=== PATIENT | male | born 1955 | race Two or more races ===

== ENCOUNTER 2017-11-03 04:48 | Inpatient (IN) | payer OTHER ==
[2017-11-02 14:14] LABS: MICROSCOPIC NOT IND
[2017-11-02 14:25] LABS: BASOPHILS # (AUTO) 0.09 x10^3/uL (0-0.1); BASOPHILS % (AUTO) 1 % (0-1); EOSINOPHILS # (AUTO) 0.43 x10^3/uL (0-0.4); EOSINOPHILS % (AUTO) 5 % (1-7); LYMPHOCYTES % (AUTO) 26 % (22-44); MD NO; MEAN CORPUSCULAR HEMOGLOBIN 29.1 pg (27.5-34.5); MEAN CORPUSCULAR HGB CONC 32.8 g/dL (33.2-36.2); MEAN CORPUSCULAR VOLUME 88.8 fL (81-97); MEAN PLATELET VOLUME 9.3 fL (7.4-10.4); MONOCYTES # (AUTO) 0.67 x10^3/uL (0.2-0.8); MONOCYTES % (AUTO) 7 % (2-9); NEUTROPHILS # (AUTO) 5.49 x10^3/uL (1.8-6.8); NEUTROPHILS % (AUTO) 60 % (42-75); PLATELET COUNT 212 x10^3/uL (130-400); RED BLOOD COUNT 5.73 x10^6/uL (4.38-5.82); RED CELL DISTRIBUTION WIDTH 13.4 % (9.4-14.8)
[2017-11-02 14:38] LABS: ANION GAP 6 mmol/L (5-15); CALCIUM 9.1 mg/dL (8.5-10.1); CHLORIDE 109 mmol/L (98-107)
[2017-11-02 14:42] LABS: ALANINE AMINOTRANSFERASE 33 U/L (12-78); ALKALINE PHOSPHATASE 96 U/L (45-117); BILIRUBIN,TOTAL 0.6 mg/dL (0.2-1.0); CREATININE 1.28 mg/dL (0.7-1.3); TOTAL PROTEIN 7.7 g/dL (6.4-8.2)
[2017-11-02 14:58] LABS: INTERNATIONAL NORMALIZED RATIO 1.03 (0.93-1.1); PROTHROMBIN TIME 10.7 Seconds (9.6-11.5)
[~2017-11-03] VITALS: Ht 182.9 cm; Wt 83.5 kg
[~2017-11-03 04:48] MED LIST: RIVA20TA PO
[2017-11-03] MEDS ORDERED: ALBUMIN HUMAN 5% 500 ML IV PRN (05:00)
[2017-11-03] MEDS ORDERED: INSULIN LISPRO 100 UNITS/ML, PEN SQ-INSULIN SCH (05:30)
[2017-11-03] MEDS ORDERED: DO NOT GIVE MC SCH (05:30)
[2017-11-03] MEDS ORDERED: CHLORHEXIDINE 15 ML BOTTLE MM SCH (05:30)
[2017-11-03] MEDS: MUPIROCIN OINT 2%, 22GM TP SCH ×2 (05:46→21:00)
[2017-11-03 05:56] VITALS: BP_SYST 118; BP_SYST 136; BP_DIAS 71; BP_DIAS 76
[2017-11-03] MEDS: SODIUM CHLORIDE FLUSH 10ML SYR IVF SCH ×3 (06:26→21:28)
[2017-11-03] MEDS ORDERED: REGULAR INSULIN 62.5 UNITS in SODIUM CHLORIDE 0.9% 249.375 ML IV PRN ×2 (07:30→13:20)
[2017-11-03] MEDS ORDERED: DEXMEDETOMIDINE 200 MCG in SODIUM CHLORIDE 0.9% 48 ML IV SCH (07:30)
[2017-11-03] MEDS ORDERED: MANNITOL PMX 20% 500 ML IVPB PRN (07:30)
[2017-11-03] MEDS ORDERED: PHENYLEPHRINE 10 MG in SODIUM CHLORIDE 0.9% 249 ML IV PRN ×2 (07:30→13:20)
[2017-11-03] MEDS ORDERED: CEFUROXIME 1.5 GM in SODIUM CHLORIDE 0.9% 50 ML IVPB PRN (07:30)
[2017-11-03] MEDS ORDERED: EPINEPHRINE 2 MG in SODIUM CHLORIDE 0.9% 248 ML IV SCH (07:30)
[2017-11-03] MEDS ORDERED: VANCOMYCIN 1,200 MG in SODIUM CHLORIDE 0.9% 250 ML IV PRN (07:30)
[2017-11-03] MEDS ORDERED: POTASSIUM CHLORIDE 80 MEQ, SODIUM BICARBONATE 8.4% 10 MEQ, MAGNESIUM SULFATE 0.5 GM, LI... IV PRN (07:30)
[2017-11-03] MEDS ORDERED: MIDAZOLAM 10MG/2 ML ONE (07:35)
[2017-11-03] MEDS ORDERED: SUFentanil 50 MCG/ML, 5ML ONE (07:36)
[2017-11-03] MEDS: DOCUSATE 100 MG CAPSULE PO SCH ×2 (09:00→21:00)
[2017-11-03] MEDS ORDERED: ROCURONIUM 10MG/ML,5ML ONE ×2 (12:01)
[2017-11-03] MEDS ORDERED: PROPOFOL 10 MG/ML, 20ML ONE (12:01)
[2017-11-03] MEDS ORDERED: PROTAMINE SULFATE 10 MG/ML, 25ML ONE ×2 (12:02)
[2017-11-03] MEDS ORDERED: AMINOCAPROIC ACID 250 MG/ML, 20ML ONE ×2 (12:02)
[2017-11-03] MEDS ORDERED: HEPARIN 1,000 UNITS/ML, 30ML ONE (13:13)
[2017-11-03] MEDS ORDERED: MANNITOL 0.25 GM/ML, 50ML ONE (13:14)
[2017-11-03] MEDS ORDERED: LIDOCAINE 2% 100MG/5ML SYRINGE ONE (13:15)
[2017-11-03] MEDS ORDERED: SODIUM BICARBONATE 1 MEQ/ML, 50ML VIAL ONE (13:15)
[2017-11-03] MEDS ORDERED: methylPREDNISolone SOD SUCC 125 MG/2 ML ONE (13:16)
[2017-11-03] MEDS ORDERED: ALBUMIN HUMAN 25% 100 ML ONE (13:16)
[2017-11-03] MEDS ORDERED: NITROGLYCERIN/D5W PMX 250 ML IV PRN (13:20)
[2017-11-03] MEDS ORDERED: SODIUM CHLORIDE 0.9% 1,000 ML IV PRN (13:20)
[2017-11-03] MEDS ORDERED: DOBUTAMINE 250 MG in SODIUM CHLORIDE 0.9% 230 ML IV PRN (13:20)
[2017-11-03] MEDS ORDERED: VASOPRESSIN 50 UNIT in SODIUM CHLORIDE 0.9% 247.5 ML IV PRN (13:20)
[2017-11-03] MEDS ORDERED: FENTANYL PF 100 MCG/2ML IVPush PRN (13:30)
[2017-11-03] MEDS ORDERED: ACETAMINOPHEN 650 MG SUPP PR PRN (13:30)
[2017-11-03] MEDS ORDERED: PROCHLORPERAZINE 5 MG/ML, 2ML IVPush PRN (13:30)
[2017-11-03] MEDS ORDERED: BISACODYL 5 MG EC TABLET PO PRN (13:30)
[2017-11-03] MEDS ORDERED: BISACODYL 10 MG SUPP PR PRN (13:30)
[2017-11-03] MEDS ORDERED: INSULIN REGULAR 100 UNITS/ML, 3ML VIAL IVPush PRN (13:30)
[2017-11-03] MEDS ORDERED: morphine SULFATE 10 MG/ML, 1ML IVPush PRN (13:30)
[2017-11-03] MEDS ORDERED: GLUCAGON 1 MG IM PRN (13:30)
[2017-11-03] MEDS ORDERED: MIDAZOLAM 1 MG/ML, 5ML IVPush PRN (13:30)
[2017-11-03] MEDS ORDERED: DEXTROSE 4 GM TAB.CHEW PO PRN (13:30)
[2017-11-03] MEDS ORDERED: DEXTROSE 50%, 50ML SYRINGE IVPush PRN (13:30)
[2017-11-03] MEDS ORDERED: EPINEPHRINE 2 MG in SODIUM CHLORIDE 0.9% 248 ML IV PRN (13:30)
[2017-11-03 13:56] LABS: GLUCOSE BY BLOOD GAS ANALYZER 120 mg/dL (70-110); HEMOGLOBIN BY BLOOD GAS ANALYZ 12.6 g/dL (14.0-18.0); POTASSIUM BY BLOOD GAS ANALYZR 3.7 mmol/L (3.6-5.5)
[2017-11-03 14:12] LABS: INTERNATIONAL NORMALIZED RATIO 1.33 (0.93-1.1); PROTHROMBIN TIME 13.8 Seconds (9.6-11.5)
[2017-11-03] MEDS: LACTATED RINGERS 1,000 ML IV PRN ×4 (14:28→17:25)
[2017-11-03] MEDS ORDERED: FILTER 0.22 MICRON FOR AMIODARONE IV PRN (14:30)
[2017-11-03] MEDS ORDERED: AMIODARONE 900 MG in DEXTROSE 5% 482 ML IV PRN (14:30)
[2017-11-03] MEDS: KSCALE TO 4.5 IV SCH ×2 (14:52→19:30)
[2017-11-03] MEDS ORDERED: POTASSIUM CHLORIDE PMX 100 ML IV ONE (15:00)
[2017-11-03] MEDS ORDERED: MAGNESIUM SULFATE 1 GM in SODIUM CHLORIDE 0.9% 50 ML IVPB SCH (15:00)
[2017-11-03] MEDS: DEXMEDETOMIDINE 200 MCG in SODIUM CHLORIDE 0.9% 48 ML IV PRN (15:48)
[2017-11-03] MEDS: INSULIN LISPRO 100 UNITS/ML, PEN SQ-INSULIN SCH ×2 (15:49→21:00)
[2017-11-03] MEDS ORDERED: CALCIUM CHLORIDE 13.6 MEQ in SODIUM CHLORIDE 0.9% 100 ML IV ONE (19:30)
[2017-11-03] MEDS: CEFUROXIME 1.5 GM in SODIUM CHLORIDE 0.9% 50 ML IVPB SCH (19:45)
[2017-11-03] MEDS: VANCOMYCIN 1,200 MG in SODIUM CHLORIDE 0.9% 250 ML IVPB SCH (20:46)
[2017-11-03] MEDS: MUPIROCIN OINT 2%, 22GM NAS SCH (21:27)
[2017-11-04] MEDS: KSCALE TO 4.5 IV SCH ×2 (01:30→07:30)
[2017-11-04] MEDS: DEXMEDETOMIDINE 200 MCG in SODIUM CHLORIDE 0.9% 48 ML IV PRN (02:33)
[2017-11-04] MEDS ORDERED: LACTATED RINGERS 500 ML IVBOLUS PRN (03:00)
[2017-11-04 04:00] VITALS: BP 110/64
[2017-11-04 04:50] LABS: BASOPHILS # (AUTO) 0.02 x10^3/uL (0-0.1); BASOPHILS % (AUTO) 0 % (0-1); EOSINOPHILS % (AUTO) 0 % (1-7); LYMPHOCYTES # (AUTO) 1.17 x10^3/uL (1-3.4); LYMPHOCYTES % (AUTO) 7 % (22-44); MD NO; MEAN CORPUSCULAR HEMOGLOBIN 29.1 pg (27.5-34.5); MEAN CORPUSCULAR HGB CONC 33.1 g/dL (33.2-36.2); MEAN CORPUSCULAR VOLUME 87.9 fL (81-97); MONOCYTES # (AUTO) 0.86 x10^3/uL (0.2-0.8); MONOCYTES % (AUTO) 5 % (2-9); NEUTROPHILS # (AUTO) 14.23 x10^3/uL (1.8-6.8); NEUTROPHILS % (AUTO) 87 % (42-75); PLATELET COUNT 126 x10^3/uL (130-400); RED BLOOD COUNT 4.54 x10^6/uL (4.38-5.82)
[2017-11-04 05:14] LABS: INTERNATIONAL NORMALIZED RATIO 1.14 (0.93-1.1); PROTHROMBIN TIME 11.8 Seconds (9.6-11.5)
[2017-11-04 05:22] LABS: ALBUMIN 2.9 g/dL (3.4-5.0); ANION GAP 9 mmol/L (5-15); CALCIUM 7.7 mg/dL (8.5-10.1); CHLORIDE 114 mmol/L (98-107); CREATININE 0.86 mg/dL (0.7-1.3)
[2017-11-04] MEDS: OXYcodone IR 5MG TABLET PO PRN ×4 (07:03→16:36)
[2017-11-04] MEDS ORDERED: ALBUMIN HUMAN 5% 500 ML IV ONE (08:00)
[2017-11-04] MEDS ORDERED: LACTATED RINGERS 500 ML IVBOLUS ONE (08:00)
[2017-11-04] MEDS ORDERED: CHLORDIAZEPOXIDE 10 MG CAPSULE PO PRN (08:30)
[2017-11-04] MEDS ORDERED: LORazepam 2 MG/ML, 1ML IVPush PRN (08:30)
[2017-11-04] MEDS: CEFUROXIME 1.5 GM in SODIUM CHLORIDE 0.9% 50 ML IVPB SCH (08:33)
[2017-11-04] MEDS: INSULIN LISPRO 100 UNITS/ML, PEN SQ-INSULIN SCH ×4 (08:47→21:19)
[2017-11-04] MEDS: WARFARIN BIOPROSTHETIC VALVE PROTOCOL 2-3 XX SCH (09:00)
[2017-11-04] MEDS: SODIUM CHLORIDE FLUSH 10ML SYR IVF SCH ×4 (09:00→21:11)
[2017-11-04] MEDS: DOCUSATE 100 MG CAPSULE PO SCH ×2 (10:10→21:12)
[2017-11-04] MEDS: ASPIRIN 81 MG TABLET EC PO SCH (10:10)
[2017-11-04] MEDS: MUPIROCIN OINT 2%, 22GM NAS SCH ×2 (10:11→21:12)
[2017-11-04] MEDS: AMIODARONE 200 MG TABLET PO SCH ×2 (10:11→21:13)
[2017-11-04] MEDS: VANCOMYCIN 1,200 MG in SODIUM CHLORIDE 0.9% 250 ML IVPB SCH (13:12)
[2017-11-04] MEDS: CHLORHEXIDINE 15 ML BOTTLE MM SCH (13:14)
[2017-11-04] MEDS: HYDROcodone/APAP 10/325 MG TABLET PO PRN (15:14)
[2017-11-04] MEDS: MAGNESIUM SULFATE 1 GM in DEXTROSE 5% 100 ML IVPB SCH (15:14)
[2017-11-04] MEDS ORDERED: WARFARIN 5 MG TABLET PO-COUM ONE (18:00)
[2017-11-05] MEDS: ONDANSETRON 2MG/ML, 2ML IVPush PRN ×2 (00:44→16:51)
[2017-11-05 04:00] VITALS: BP 106/72
[2017-11-05] MEDS: OXYcodone IR 5MG TABLET PO PRN (04:31)
[2017-11-05] MEDS: CHLORHEXIDINE 15 ML BOTTLE MM SCH ×2 (04:32→15:30)
[2017-11-05 05:02] LABS: CHLORIDE 108 mmol/L (98-107)
[2017-11-05 06:10] LABS: ANION GAP 11 mmol/L (5-15); CALCIUM 7.4 mg/dL (8.5-10.1); CREATININE 2.39 mg/dL (0.7-1.3)
[2017-11-05] MEDS ORDERED: FUROSEMIDE 20 MG/2 ML IV ONE (06:30)
[2017-11-05 06:39] LABS: MEAN CORPUSCULAR HEMOGLOBIN 29.1 pg (27.5-34.5); MEAN CORPUSCULAR HGB CONC 32.4 g/dL (33.2-36.2); MEAN CORPUSCULAR VOLUME 89.8 fL (81-97); MEAN PLATELET VOLUME 10.6 fL (7.4-10.4); PLATELET COUNT 116 x10^3/uL (130-400); RED BLOOD COUNT 4.89 x10^6/uL (4.38-5.82); RED CELL DISTRIBUTION WIDTH 14.4 % (9.4-14.8)
[2017-11-05 07:03] LABS: INTERNATIONAL NORMALIZED RATIO 1.55 (0.93-1.1)
[2017-11-05 07:13] LABS: MD YES
[2017-11-05 07:15] LABS: BANDS%(MANUAL) 2 % (0-7); LYMPH#(MANUAL) 1.51 x10^3/uL (1-3.4); LYMPHS% (MANUAL) 6 % (22-44); MONOS#(MANUAL) 1.51 x10^3/uL (0.3-2.7); MONOS% (MANUAL) 6 % (2-9); NRBC % (MANUAL) 1 % (0-1); SEG#(MANUAL) 21.59 x10^3/uL (1.8-6.8); SEGS% (MANUAL) 86 % (42-75)
[2017-11-05 07:16] LABS: <PLATELET ESTIMATE> DECREASED; LARGE PLATELETS 1+; POLYCHROMASIA 1+
[2017-11-05] MEDS: SODIUM CHLORIDE FLUSH 10ML SYR IVF SCH ×3 (07:29→21:28)
[2017-11-05] MEDS: SODIUM BICARB 8.4%, 50ML SYRINGE IV PRN ×2 (08:03→08:04)
[2017-11-05] MEDS: WARFARIN BIOPROSTHETIC VALVE PROTOCOL 2-3 XX SCH (09:00)
[2017-11-05] MEDS: ASPIRIN 81 MG TABLET EC PO SCH (09:52)
[2017-11-05] MEDS: AMIODARONE 200 MG TABLET PO SCH (09:52)
[2017-11-05] MEDS: INSULIN LISPRO 100 UNITS/ML, PEN SQ-INSULIN SCH ×4 (09:53→21:26)
[2017-11-05] MEDS: DOCUSATE 100 MG CAPSULE PO SCH ×2 (09:53→21:26)
[2017-11-05] MEDS: MUPIROCIN OINT 2%, 22GM NAS SCH ×2 (09:53→21:25)
[2017-11-05 11:47] LABS: CHLORIDE 105 mmol/L (98-107)
[2017-11-05 11:50] LABS: ANION GAP 10 mmol/L (5-15); CALCIUM 7.3 mg/dL (8.5-10.1); CREATININE 2.11 mg/dL (0.7-1.3)
[2017-11-05] MEDS: SODIUM CHLORIDE 0.9% 1,000 ML IV SCH (11:50)
[2017-11-05] MEDS: HYDROcodone/APAP 10/325 MG TABLET PO PRN (11:59)
[2017-11-05] MEDS: MAGNESIUM SULFATE 1 GM in DEXTROSE 5% 100 ML IVPB SCH (15:00)
[2017-11-05] MEDS ORDERED: WARFARIN 5 MG TABLET PO-COUM ONE (18:00)
[2017-11-06] MEDS: CHLORHEXIDINE 15 ML BOTTLE MM SCH (00:55)
[2017-11-06 04:48] VITALS: BP 125/82
[2017-11-06 04:54] LABS: INTERNATIONAL NORMALIZED RATIO 1.63 (0.93-1.1); MEAN CORPUSCULAR HGB CONC 33.1 g/dL (33.2-36.2); MEAN CORPUSCULAR VOLUME 90.6 fL (81-97); PROTHROMBIN TIME 16.8 Seconds (9.6-11.5); RED BLOOD COUNT 4.05 x10^6/uL (4.38-5.82); RED CELL DISTRIBUTION WIDTH 13.5 % (9.4-14.8)
[2017-11-06 05:49] LABS: MEAN PLATELET VOLUME 9.7 fL (7.4-10.4); PLATELET COUNT 101 x10^3/uL (130-400)
[2017-11-06 05:50] LABS: BASOPHILS # (AUTO) 0.08 x10^3/uL (0-0.1); BASOPHILS % (AUTO) 0 % (0-1); EOSINOPHILS # (AUTO) 0.01 x10^3/uL (0-0.4); EOSINOPHILS % (AUTO) 0 % (1-7); LYMPHOCYTES # (AUTO) 1.69 x10^3/uL (1-3.4); LYMPHOCYTES % (AUTO) 9 % (22-44); MD SCAN; MONOCYTES # (AUTO) 0.73 x10^3/uL (0.2-0.8); MONOCYTES % (AUTO) 4 % (2-9); NEUTROPHILS # (AUTO) 15.56 x10^3/uL (1.8-6.8); NEUTROPHILS % (AUTO) 86 % (42-75)
[2017-11-06 06:02] LABS: ANION GAP 6 mmol/L (5-15); CALCIUM 7.4 mg/dL (8.5-10.1); CHLORIDE 105 mmol/L (98-107); CREATININE 1.55 mg/dL (0.7-1.3)
[2017-11-06] MEDS: INSULIN LISPRO 100 UNITS/ML, PEN SQ-INSULIN SCH ×4 (07:00→20:37)
[2017-11-06] MEDS: ONDANSETRON 2MG/ML, 2ML IVPush PRN (08:25)
[2017-11-06] MEDS ORDERED: FUROSEMIDE 20 MG/2 ML ONE (08:55)
[2017-11-06] MEDS: FUROSEMIDE 20 MG/2 ML IV SCH ×2 (08:57→17:33)
[2017-11-06] MEDS: WARFARIN BIOPROSTHETIC VALVE PROTOCOL 2-3 XX SCH (09:00)
[2017-11-06] MEDS: ASPIRIN 81 MG TABLET EC PO SCH (12:30)
[2017-11-06] MEDS: SODIUM CHLORIDE FLUSH 10ML SYR IVF SCH ×2 (12:30→20:33)
[2017-11-06] MEDS: MUPIROCIN OINT 2%, 22GM NAS SCH ×2 (12:30→20:34)
[2017-11-06] MEDS: DOCUSATE 100 MG CAPSULE PO SCH ×2 (12:30→20:34)
[2017-11-06] MEDS: SODIUM CHLORIDE 0.9% 1,000 ML IV SCH (17:32)
[2017-11-06] MEDS ORDERED: WARFARIN 7.5 MG TABLET PO-COUM ONE (18:00)
[2017-11-07 04:55] VITALS: BP 121/69
[2017-11-07 05:51] LABS: CHLORIDE 103 mmol/L (98-107)
[2017-11-07 05:53] LABS: MEAN CORPUSCULAR HEMOGLOBIN 30.2 pg (27.5-34.5); MEAN CORPUSCULAR HGB CONC 34.1 g/dL (33.2-36.2); MEAN CORPUSCULAR VOLUME 88.6 fL (81-97); RED BLOOD COUNT 3.78 x10^6/uL (4.38-5.82); RED CELL DISTRIBUTION WIDTH 13.4 % (9.4-14.8)
[2017-11-07 06:08] LABS: INTERNATIONAL NORMALIZED RATIO 1.76 (0.93-1.1); PROTHROMBIN TIME 18.1 Seconds (9.6-11.5)
[2017-11-07 06:09] LABS: ANION GAP 6 mmol/L (5-15); CALCIUM 7.2 mg/dL (8.5-10.1); CREATININE 0.97 mg/dL (0.7-1.3)
[2017-11-07 06:17] LABS: BASOPHILS # (AUTO) 0.09 x10^3/uL (0-0.1); BASOPHILS % (AUTO) 1 % (0-1); EOSINOPHILS # (AUTO) 0.05 x10^3/uL (0-0.4); EOSINOPHILS % (AUTO) 0 % (1-7); LYMPHOCYTES % (AUTO) 11 % (22-44); MD SCAN; MEAN PLATELET VOLUME 9.4 fL (7.4-10.4); MONOCYTES # (AUTO) 0.57 x10^3/uL (0.2-0.8); MONOCYTES % (AUTO) 4 % (2-9); NEUTROPHILS # (AUTO) 10.83 x10^3/uL (1.8-6.8); NEUTROPHILS % (AUTO) 84 % (42-75); PLATELET COUNT 91 x10^3/uL (130-400)
[2017-11-07] MEDS: INSULIN LISPRO 100 UNITS/ML, PEN SQ-INSULIN SCH ×4 (07:00→21:00)
[2017-11-07] MEDS: MUPIROCIN OINT 2%, 22GM NAS SCH ×2 (08:11→21:00)
[2017-11-07] MEDS: FUROSEMIDE 20 MG/2 ML IV SCH ×2 (08:12→18:29)
[2017-11-07] MEDS: ASPIRIN 81 MG TABLET EC PO SCH (08:12)
[2017-11-07] MEDS: DOCUSATE 100 MG CAPSULE PO SCH ×2 (08:12→21:00)
[2017-11-07] MEDS: SODIUM CHLORIDE FLUSH 10ML SYR IVF SCH ×3 (08:12→21:00)
[2017-11-07] MEDS: WARFARIN BIOPROSTHETIC VALVE PROTOCOL 2-3 XX SCH (08:12)
[2017-11-07] MEDS ORDERED: MAGNESIUM HYDROXIDE 8%, 30ML UDC PO PRN (10:00)
[2017-11-07] MEDS ORDERED: WARFARIN 7.5 MG TABLET PO-COUM ONE (18:00)
[2017-11-07] MEDS: ACETAMINOPHEN 325 MG TABLET PO PRN (21:45)
[2017-11-08 02:02] VITALS: BP 130/83
[2017-11-08 04:56] LABS: CALCIUM 7.3 mg/dL (8.5-10.1); CHLORIDE 102 mmol/L (98-107)
[2017-11-08 04:59] LABS: BASOPHILS # (AUTO) 0.01 x10^3/uL (0-0.1); BASOPHILS % (AUTO) 0 % (0-1); EOSINOPHILS # (AUTO) 0.18 x10^3/uL (0-0.4); EOSINOPHILS % (AUTO) 2 % (1-7); INTERNATIONAL NORMALIZED RATIO 1.66 (0.93-1.1); LYMPHOCYTES # (AUTO) 1.26 x10^3/uL (1-3.4); LYMPHOCYTES % (AUTO) 11 % (22-44); MD NO; MEAN CORPUSCULAR HEMOGLOBIN 29.9 pg (27.5-34.5); MEAN CORPUSCULAR HGB CONC 33.6 g/dL (33.2-36.2); MEAN CORPUSCULAR VOLUME 88.9 fL (81-97); MEAN PLATELET VOLUME 8.8 fL (7.4-10.4); MONOCYTES # (AUTO) 0.61 x10^3/uL (0.2-0.8); MONOCYTES % (AUTO) 5 % (2-9); NEUTROPHILS # (AUTO) 9.41 x10^3/uL (1.8-6.8); NEUTROPHILS % (AUTO) 82 % (42-75); PLATELET COUNT 110 x10^3/uL (130-400); PROTHROMBIN TIME 17.1 Seconds (9.6-11.5); RED BLOOD COUNT 4.14 x10^6/uL (4.38-5.82); RED CELL DISTRIBUTION WIDTH 13.6 % (9.4-14.8)
[2017-11-08 05:00] LABS: ANION GAP 6 mmol/L (5-15); CREATININE 0.82 mg/dL (0.7-1.3)
[2017-11-08] MEDS: INSULIN LISPRO 100 UNITS/ML, PEN SQ-INSULIN SCH (07:00)
[2017-11-08 07:08] VITALS: BP 131/80
[2017-11-08] MEDS: FUROSEMIDE 20 MG/2 ML IV SCH ×2 (08:54→17:40)
[2017-11-08] MEDS: DOCUSATE 100 MG CAPSULE PO SCH ×2 (08:54→19:41)
[2017-11-08] MEDS: SODIUM CHLORIDE FLUSH 10ML SYR IVF SCH ×4 (08:55→19:41)
[2017-11-08] MEDS: ASPIRIN 81 MG TABLET EC PO SCH (08:55)
[2017-11-08] MEDS: MUPIROCIN OINT 2%, 22GM NAS SCH (08:55)
[2017-11-08] MEDS: WARFARIN BIOPROSTHETIC VALVE PROTOCOL 2-3 XX SCH (08:56)
[2017-11-08] MEDS ORDERED: POTASSIUM CHLORIDE 20 MEQ TAB.ER.PRT PO ONE (10:30)
[2017-11-08] MEDS: HYDROcodone/APAP 5/325 TABLET PO PRN ×2 (12:27→19:40)
[2017-11-08 12:39] VITALS: BP 131/85
[2017-11-08] MEDS ORDERED: WARFARIN 10 MG TABLET PO-COUM ONE (18:00)
[2017-11-08 19:42] VITALS: BP 122/73
[2017-11-09 01:50] VITALS: BP 123/76
[2017-11-09 05:45] LABS: CHLORIDE 100 mmol/L (98-107)
[2017-11-09 05:49] LABS: INTERNATIONAL NORMALIZED RATIO 1.52 (0.93-1.1); PROTHROMBIN TIME 15.7 Seconds (9.6-11.5)
[2017-11-09 05:54] LABS: ANION GAP 8 mmol/L (5-15); CREATININE 0.79 mg/dL (0.7-1.3)
[2017-11-09] MEDS: DOCUSATE 100 MG CAPSULE PO SCH ×2 (07:38→19:55)
[2017-11-09] MEDS: WARFARIN BIOPROSTHETIC VALVE PROTOCOL 2-3 XX SCH (07:39)
[2017-11-09] MEDS: ASPIRIN 81 MG TABLET EC PO SCH (07:39)
[2017-11-09] MEDS: SODIUM CHLORIDE FLUSH 10ML SYR IVF SCH ×4 (07:39→19:56)
[2017-11-09] MEDS: FUROSEMIDE 20 MG/2 ML IV SCH ×2 (07:39→17:32)
[2017-11-09 07:40] VITALS: BP 139/88
[2017-11-09] MEDS: ACETAMINOPHEN 325 MG TABLET PO PRN (07:45)
[2017-11-09] MEDS ORDERED: POTA20TA14 PO (10:38)
[2017-11-09] MEDS ORDERED: WARF10TA PO-COUM (10:38)
[2017-11-09] MEDS ORDERED: FURO40TA6 PO (10:38)
[2017-11-09] MEDS ORDERED: ASPI-621 PO (10:38)
[2017-11-09] MEDS ORDERED: HYDR-3240 PO (10:38)
[2017-11-09 14:24] VITALS: BP 109/73
[2017-11-09] MEDS ORDERED: WARFARIN 10 MG TABLET PO-COUM ONE (18:00)
[2017-11-09 19:50] VITALS: BP 112/79
[2017-11-10 00:19] VITALS: BP 114/70
[2017-11-10 05:26] LABS: INTERNATIONAL NORMALIZED RATIO 2.09 (0.93-1.1); PROTHROMBIN TIME 21.2 Seconds (9.6-11.5)
[2017-11-10 05:54] LABS: CALCIUM 8.1 mg/dL (8.5-10.1); CHLORIDE 103 mmol/L (98-107)
[2017-11-10 05:56] LABS: ANION GAP 9 mmol/L (5-15); CREATININE 0.86 mg/dL (0.7-1.3)
[2017-11-10 07:28] VITALS: BP 115/78
[2017-11-10] MEDS: SODIUM CHLORIDE FLUSH 10ML SYR IVF SCH ×2 (08:43→08:44)
[2017-11-10] MEDS: ASPIRIN 81 MG TABLET EC PO SCH (08:43)
[2017-11-10] MEDS: FUROSEMIDE 20 MG/2 ML IV SCH (08:43)
[2017-11-10] MEDS: DOCUSATE 100 MG CAPSULE PO SCH (08:43)
[2017-11-10] MEDS: WARFARIN BIOPROSTHETIC VALVE PROTOCOL 2-3 XX SCH (08:43)
[2017-11-10] MEDS ORDERED: LISI5TAB7 PO (08:55)
[2017-11-10] MEDS ORDERED: WARFARIN 5 MG TABLET PO-COUM ONE (18:00)
== END 2017-11-10 11:30 | disposition home or self-care (01) | DRG 219 ==
LOC: 5SO 04:48 → CCU 07:47 → 5SO 11-07 17:46 → DCLOUNGE 11-10 11:01
PROVIDERS: ADMIT Thoracic Surgery (Cardiothoracic Vascular Surgery); ATTEND Thoracic Surgery (Cardiothoracic Vascular Surgery)
PROC: 04R00JZ Replacement of Abdominal Aorta with Synthetic Substitute, Open Approach (ICD-10-PCS; 2017-11-03)
PROC: 02580ZZ Destruction of Conduction Mechanism, Open Approach (ICD-10-PCS; 2017-11-03)
PROC: 5A1221Z Performance of Cardiac Output, Continuous (ICD-10-PCS; 2017-11-03)
PROC: 02B70ZK Excision of Left Atrial Appendage, Open Approach (ICD-10-PCS; 2017-11-03)
PROC: B246ZZ4 Ultrasonography of Right and Left Heart, Transesophageal (ICD-10-PCS; 2017-11-03)
PROC: 02RF08Z Replacement of Aortic Valve with Zooplastic Tissue, Open Approach (ICD-10-PCS; principal; 2017-11-03 08:30)
DX: I08.0 Rheumatic disorders of both mitral and aortic valves (principal); J96.00 Acute respiratory failure, unspecified whether with hypoxia or hypercapnia; E87.2 Acidosis; I13.0 Hypertensive heart and chronic kidney disease with heart failure and stage 1 through stage 4 chronic kidney disease, or unspecified chronic kidney disease; I50.42 Chronic combined systolic (congestive) and diastolic (congestive) heart failure; N17.9 Acute kidney failure, unspecified; J98.11 Atelectasis; F10.10 Alcohol abuse, uncomplicated; G47.33 Obstructive sleep apnea (adult) (pediatric); I48.0 Paroxysmal atrial fibrillation; I71.2 Thoracic aortic aneurysm, without rupture; N18.3 Chronic kidney disease, stage 3 (moderate); Z79.01 Long term (current) use of anticoagulants
CPT/HCPCS: 36415; 36600; 82805; S0017; 71045; 71046; 80048; 80053; 81003; 82040; 82330; 82800; 82803; 82810; 82947; 82962; 83036; 83735; 84132; 84295; 85014; 85018; 85025; 85049; 85347; 85610; 85730; 86850; 86900; 86923; 87081; 88304; 88305; 93005; 93318; 93321; 93325; 93880; 94002; 94003; 94150; C1760; C1768; J0697; J1644; J1815; J2250; J2405; J2704; J2720; J3010; J3370; J3475; J3480; J3490; J7120; P9045; P9047; C1751; J0171; J0282; J1250; J1940; J2150; J2370; J2930; J7030; J7050; J7060